=== PATIENT | female | born 1960 | race Caucasian/White ===

== ENCOUNTER 2018-09-23 09:36 | Outpatient (CLI) | payer BC, SELFPAY ==
[2018-09-23 10:53] LABS: Calculated LDL 169; Cholesterol 247 mg/dL (50-200); HDL Cholesterol 50 mg/dL (40-60); Triglyceride 142 mg/dL (30-150)
== END 2018-09-23 09:56 ==
PROVIDERS: PCP Emergency Medicine; Visit Provider Emergency Medicine
DX: Z13.220 Encounter for screening for lipoid disorders (principal)
CPT/HCPCS: 36415; 80061; 83721

== ENCOUNTER 2018-12-07 08:59 | Day surgery (SDC) | payer BC, SELFPAY ==
--- NOTE | 2018-12-07 06:57 | W.COLOREPORT ---
Date of service: 12/07/18 Time of Service: 10:01 Colonoscopy Report Date of procedure: 12/07/18 Pre-op diagnosis general: Colon Cancer Screening Post-op diagnosis procedure note: same (and mild diverticulosis) Procedure: Colonoscopy Surgeon: Aster Arriaza Anesthesia proc note operative: other (General/ ASA 2/ Michelle Bowman CRNA) Estimated blood loss (mL): 0 Pathology: none sent Complications: None Disposition: same day Indications: Mrs. Carmona is a pleasant 58 year old female seen in the office for a screening colonoscopy. Risks, benefits and complications have been reviewed. Complications include but are not limited to bleeding, pain, perforation, missed small lesion/polyp, sore throat, aspiration and adverse reaction to the medications. Questions were entertained and answered to their satisfaction and they wished to proceed. No guarantees were given or implied. Prep: Miralax/Dulcolax Procedure Start Time: 10:01 Procedure End Time: 10:20 Retraction Time: 11 minutes Findings: Mild diverticulosis Procedure Description: After informed consent was obtained the patient was taken to the procedure room and placed in a left decubitous position. Monitors were applied and a time out was done. The patients name, date of , procedure, allergies to medications and metal in their body was reviewed. The patient was then sedated. Once sedated and comfortable a rectal exam was done. External exam was normal. Internal exam revealed a normal sphincter tone and no palpable masses. The scope was then introduced and retro-flexed. No internal hemorrhoids, rectal polyps or masses were identified. The scope was then advanced to the cecum without difficulty. The TI and appendiceal orifice were identified. The prep was good. The scope was then slowly retracted over 11 minutes back into the rectum. There were no polyps. There was mild diverticulosis in the sigmoid colon. The scope was removed and the patient was woken up and taken back to Same day surgery in stable condition. The patient tolerated the procedure well and there were no immediate complications. Follow up: The patient should follow up in 10 years unless they develop changes in bowel habits or other new gastrointestinal complaints.
--- NOTE | 2018-12-07 06:58 | W.PM.DSUDISC ---
Discharge Plan Disposition Patient Disposition: HOME Condition: Good Discharge Details Reason For Visit: Colon Cancer Screening Attending Provider: Aster Arriaza Primary Care Provider: Keith Mcmullen Home Meds and New Rx's Prescriptions: Continued Restasis 0.05 % dropperette 1 drp OP Q12H RF: 0 cetirizine [Zyrtec] 10 MG tablet,chewable 10 mg PO DAILY PRNRF: 0 Artificial Tears([id number]) 30 ML drops 30 ml Ophthalmic QID Qty: 1 RF: 0 One-Per-Day [place]-3 1 EACH capsule,delayed release(DR/EC) 1 ea PO DAILY RF: 0 erythromycin 5 mg/gram (0.5 %) ointment 1 applic OP DAILY RF: 0 neomycin-polymyxin B-dexameth 3.5 mg/g-10,000 unit/g-0.1 % ointment 1 applic OP QHS RF: 0 Discharge Instructions Instructions: Colonoscopy (GEN), Diverticulosis (ED) Additional Instructions: Findings:diverticulosis of the sigmoid colon Follow up: 10 years Please call if you develop: fevers >101.5 Nausea or Vomiting Abdominal pain that is not transient DAY SURGERY UNIT POST COLONOSCOPY INSTRUCTIONS 1. Because there will be medication in your system for the next 24 hours, you may feel a little sleepy. Your coordination will be affected. Therefore: a. Do not drive or operate dangerous equipment for 24 hours. b. Do not drink alcohol beverages for 24 hours (not even beer). c. Plan to go home and rest for the day. 2. Generally there are no restrictions on your activity after a day or so has gone by, but you may feel a bit fatigued for a few days. 3 After you arrive home you may have a light meal and return to a normal diet as you can tolerate it without feeling sick to your stomach. 4. After surgery, you may feel pain or discomfort. This should be only transient, but if it persists please contact your doctor. 5. If there are any questions regarding the findings of your procedure, please feel free to contact your doctor. 6. If you are unable to contact your doctor with a problem, contact the hospital at [phone]. 7. Continue all your regular medications unless directed otherwise. I understand the above instructions and have no questions. Signature of Patient or Responsible Adult Escort Date/Time Name of Responsible Adult Escort Signature of Nurse Date/Time Activity:: Activity as Tolerated Diet:: High Fiber diet Discharge Orders Discharge Orders: Discharge Order (Routine); Ordered 12/07/18 Ordered By: Aster Arriaza DS: Diagnosis Discharge Diagnosis (1) S/P colonoscopy: Status: Acute (2) Diverticulosis:
[2018-12-07 09:18] VITALS: BP 110/78; PULSE 77; RESP 16; TEMP 36.3; O2SAT 100
[2018-12-07] MEDS: Lactated Ringers 1,000 ML 80 ML IV (09:40)
[2018-12-07 10:50] VITALS: BP 119/59; PULSE 55; RESP 16; TEMP 36.6; O2SAT 98
== END 2018-12-07 11:38 | disposition home or self-care (01) ==
LOC: SUR 08:59
PROVIDERS: PCP Emergency Medicine; Visit Provider Surgery
PROC: 0DJD8ZZ Inspection of Lower Intestinal Tract, Via Natural or Artificial Opening Endoscopic (ICD-10-PCS; CPT 45378; principal; 2018-12-07 10:15)
DX: Z12.11 Encounter for screening for malignant neoplasm of colon (principal); K57.30 Diverticulosis of large intestine without perforation or abscess without bleeding
CPT/HCPCS: 45378

== ENCOUNTER 2019-02-02 01:29 | Outpatient (CLI) | payer BC, SELFPAY ==
--- NOTE | 2019-02-02 17:30 | DI.MAMMO_ITS ---
EXAM: MG MAMMO SCREENING CLINICAL HISTORY: screening. TECHNIQUE: Mammograms were interpreted according to the usual protocol including computer analysis w [employer] CAD system, tomosynthesis and C-view imaging. FINDINGS: The breast tissue is heterogeneously radiodense which limits the sensitivity of the examination. The re is no dominant mass and there are no suspicious calcifications. Note is made of findings consiste nt with multiple breast cysts. There has been no significant interval change when compared with prio r images with note again made of a biopsy clip in the subareolar portion of the left breast. IMPRESSION: No evidence of malignancy, category 2. Breast density, category C. Annual screening mammography is re commended BI-RADS Cat 2 - Benign Findings. Breast Density - Category C - Heterogeneously dense.
== END 2019-02-02 01:49 ==
PROVIDERS: PCP Emergency Medicine; Visit Provider Nurse Practitioner Family
DX: Z12.31 Encounter for screening mammogram for malignant neoplasm of breast (principal)
CPT/HCPCS: 77063; 77067

== ENCOUNTER 2020-10-06 10:43 | Outpatient (REF) | payer OTHER, SELFPAY ==
[2020-10-06 13:36] LABS: Calculated LDL 151 mg/dL (<100); Cholesterol 226 mg/dL (<200); HDL Cholesterol 57 mg/dL (40-60); Triglyceride 93 mg/dL (<150)
== END 2020-10-06 10:44 | disposition home or self-care (01) ==
LOC: LBN 10:43
PROVIDERS: PCP Emergency Medicine; Visit Provider Emergency Medicine
DX: E78.5 Hyperlipidemia, unspecified (principal)
CPT/HCPCS: 80061

== ENCOUNTER 2021-03-29 16:00 | Outpatient (REF) | payer OTHER, SELFPAY ==
--- NOTE | 2021-03-29 15:45 | PAPFT_PTH ---
PATIENT: Ayah Iglesias LOC: [facility] U#:[id number] AGE/SX: 60/F ROOM: RE03/29/[address]: DERRICK June : 1960 BED: DIS: 03/29/2021 SPEC #: [id number] RECD: 03/29/21 18:24 STATUS: FITZ REQ #: [id number] BRENNA: 03/29/21 15:[address]: Lesly Montano DEPT: [facility] Cytology RECD BY: Saige Collazo ENTERED: 03/29/21 18:24 SP TYPE: PAPFT OTHR DR: Keith Mcmullen, Tissues: 1 - CX/ENDOCX FOR PAP SMEARS Procedures: PAP THIN PREP/UVM Screening HPV DNA PROBE Comments: [id number]
== END 2021-03-29 16:01 | disposition home or self-care (01) ==
LOC: LBN 16:00
PROVIDERS: PCP Emergency Medicine; Visit Provider Nurse Practitioner Family
DX: Z12.4 Encounter for screening for malignant neoplasm of cervix (principal); Z11.51 Encounter for screening for human papillomavirus (HPV)
CPT/HCPCS: 88142; 87624

== ENCOUNTER 2021-04-05 16:00 | Outpatient (REF) | payer OTHER, SELFPAY ==
[2021-04-07 00:37] LABS: COVID-19 RT-PCR UVMMC Result Negative (Negative)
== END 2021-04-05 16:01 | disposition home or self-care (01) ==
LOC: LBN 16:00
PROVIDERS: PCP Emergency Medicine; Visit Provider Nurse Practitioner Family
DX: Z20.822 Contact with and (suspected) exposure to COVID-19 (principal)
CPT/HCPCS: U0003

== ENCOUNTER 2021-04-25 01:03 | Outpatient (CLI) | payer OTHER, SELFPAY ==
--- NOTE | 2021-04-25 17:00 | DI.MAMMO_ITS ---
Exam(s) MAMMO SCREENING EXAM: MAMMO SCREENING CLINICAL HISTORY: screening. TECHNIQUE: Bilateral full field digital CC and MLO mammographic images were obtained with 3D tomosyn thesis and utilizing computer aided detection (CAD). COMPARISON: Prior mammograms dating back to 2011, the most recent being January 2019. FINDINGS: Fibroglandular tissue pattern is again noted dense, this somewhat decreasing the sensitivity of the m ammogram for finding hidden underlying lesions. There are no new obvious radiographic findings at the level of the biopsy marker clip anteriorly in t he left breast. Multiple nodular densities in the left breast are again noted, few of these exhibiting some periphera l calcification, similar to previous. However, 1 of the well-defined nodules in the left breast has slightly increased in size. Ultrasound recommended. This presently measures 11 by 8 millimeters. In the opposite-right breast 1 of the more laterally located nodules has decreased in size. IMPRESSION: Bilateral nodules. Most are stable in size with the exception of 1 which is located in the left quin st, approximately 2.5 cm in from the nipple on the CC view. Spot compression mammographic views and ultrasound recommended. BI-RADS Category 0 - Assessment Incomplete: Need additional imaging evaluation Breast Density - Category C - Heterogeneously dense Breast density Category C or D implies that the patient has dense breast tissue. Dense breast tissue can make it harder to find cancer on a mammogram. Dense breast tissue is also associated with an incr eased risk of breast cancer. This information about the result of the mammogram report was provided to the patient to raise their awareness. Use this report when you speak with the patient about their risks for breast cancer, which includes their family history. At that time, you may recommend additional screening tests (Ultrasoun d or MRI) as these tests may add significant information. A negative radiographic report should not delay biopsy if a dominant or clinically suspicious mass is present. Up to ten percent of cancers are not identified on mammography. A negative report may reinforce clinical impression. Adenosis and dense breasts may obscure an underlying neoplasm. False positive reports average 6 to 10%. Patient will receive a letter notifying them of these results.
== END 2021-04-25 01:23 ==
PROVIDERS: PCP Emergency Medicine; Visit Provider Nurse Practitioner Family
DX: Z12.31 Encounter for screening mammogram for malignant neoplasm of breast (principal); R92.8 Other abnormal and inconclusive findings on diagnostic imaging of breast
CPT/HCPCS: 77063; 77067

== ENCOUNTER 2021-05-04 00:21 | Outpatient (CLI) | payer OTHER, SELFPAY ==
--- NOTE | 2021-05-04 14:00 | DI.MAMMO_ITS ---
Exam(s) MG MAMMO SCREEN CALL BACK UNI US BREAST LT LIMITED EXAM: MG MAMMO SCREEN CALL BACK UNI CLINICAL HISTORY: WELL-DEFINED NODULE INCREASED IN SIZE, 2.5 CM FROM NIPPLE, LT BREAST. TECHNIQUE: Craniocaudal and mediolateral oblique spot compression digital Mammography views of the left breast with Computer Aided Diagnosis followed by Tomosynthesis and left breast ultrasound. COMPARISON: MG Screening Bilat Mammo from 03/01/2015 US RIGHT BREAST ULTRASOUND {[id number]} from 03/15/2015 US LEFT BREAST ULTRASOUND {[id number]} from 03/15/2015 MG MG MAMMO SCREENING from 02/02/2019 MG MG MAMMO SCREENING from 04/25/2021 US US BREAST LT LIMITED from 05/04/2021 FINDINGS: Mammography/Tomosynthesis: Multiple circumscribed nodules, some with peripheral calcification are again noted. No architectural distortion or spiculated mass. Biopsy marker clip again noted. Left breast US: Multiple circumscribed nodules with peripheral shadowing are noted consistent with the peripherally c alcified nodules on mammogram. In noncalcified nodules noted in the 12 o'clock position 2 cm from th e nipple which measures 12 x 6 by 10 millimeters. It has a benign appearance. Ductal dilation: None. IMPRESSION: No evidence of malignancy is noted. Multiple benign-appearing nodules. The findings were discussed with the patient on the date of the examination. BI-RADS Category 3 - Probably Benign Finding: Recommend follow-up imaging in 3 months Breast Density - Category C - Heterogeneously dense A mammogram that demonstrates density of C or D indicates the patient's breast tissue is dense. Dense breast tissue is very common and is not abnormal, but dense breast tissue can make it harder to find cancer on a mammogram. Also, dense breast tissue may increase their breast cancer risk. This informa tion about the result of the mammogram report was provided to the patient to raise their awareness. U se this report when you speak with the patient about their risks for breast cancer, which includes th eir family history. At that time, you may recommend for more screening tests (Ultrasound or MRI) as t hey might be useful based on their risk. A negative radiographic report should not delay biopsy if a dominant or clinically suspicious mass is present. Up to ten percent of cancers are not identified on mammography. A negative report may reinforce clinical impression. Adenosis and dense breasts may obscure an underlying neoplasm. False positive reports average 6 to 10%. Patient will receive a letter notifying them of these results.
== END 2021-05-04 00:41 ==
PROVIDERS: PCP Emergency Medicine; Visit Provider Nurse Practitioner Family
DX: Z12.31 Encounter for screening mammogram for malignant neoplasm of breast (principal); R92.8 Other abnormal and inconclusive findings on diagnostic imaging of breast; N60.82 Other benign mammary dysplasias of left breast
CPT/HCPCS: 76642; 77063; 77067

== ENCOUNTER 2021-08-08 01:55 | Outpatient (CLI) | payer OTHER, SELFPAY ==
--- NOTE | 2021-08-08 07:15 | DI.US_ITS ---
Exam(s) MG MAMMO DIAGNOSTIC UNI US BREAST LT LIMITED EXAM: MG MAMMO DIAGNOSTIC UNI CLINICAL HISTORY: Follow-up nodules. COMPARISON: MG Screening Bilat Mammo from 03/01/2015 MG Screening Bilat Mammo from 09/15/2017 MG MG MAMMO SCREENING from 02/02/2019 MG MG MAMMO SCREENING from 04/25/2021 MG MG MAMMO SCREEN CALL BACK UNI from 05/04/2021 US US BREAST LT LIMITED from 05/04/2021 US US BREAST LT LIMITED from 08/08/2021 [id number] TECHNIQUE: Craniocaudal and mediolateral oblique spot compression mammography views of the left quin st with Tomosynthesis and left breast ultrasound. FINDINGS: Mammography/Tomosynthesis: Masses/Architectural Distortion: Interval decrease in size of 1 of the previously noted nodules. Per ipherally calcified nodules are again noted in the superior breast. Biopsy marker clip is again note d. Microcalcifications: No suspicious pleomorphic-type are seen. Skin Thickening/Nipple Retraction: None. Left breast US: Ductal dilation: None. Smoothly marginated hypoechoic nodules in the superior breast. No suspicious masses. IMPRESSION: 1. No evidence of malignancy is noted. 2. Unless there is more urgent need, follow-up screening mammography is recommended, as per [place] [employer] guidelines. BI-RADS Category 2 - Benign Findings Breast Density - Category C - Heterogeneously dense Breast density category C or D implies that the patient has dense breast tissue. Dense breast tissue is very common and is not abnormal but dense breast tissue can make it harder to find cancer on a ma mmogram. Also, dense breast tissue may increase their breast cancer risk. This information about the result of the mammogram report was provided to the patient to raise their awareness. Use this report when you speak with the patient about their risks for breast cancer, which includes their family hist ory. At that time, you may recommend for more screening tests (Ultrasound or MRI) as they might be us eful based on their risk. A negative radiographic report should not delay biopsy if a dominant or clinically suspicious mass is present. Up to ten percent of cancers are not identified on mammography. A negative report may reinforce clinical impression. Adenosis and dense breasts may obscure an underlying neoplasm. False positive reports average 6 to 10%. Patient will receive a letter notifying them of these results.
== END 2021-08-08 02:15 ==
PROVIDERS: Visit Provider Nurse Practitioner Family
DX: R92.8 Other abnormal and inconclusive findings on diagnostic imaging of breast (principal); N60.82 Other benign mammary dysplasias of left breast
CPT/HCPCS: 76642; 77061; 77065; G0279

== ENCOUNTER 2022-05-30 00:39 | Outpatient (CLI) | payer BC, SELFPAY ==
--- NOTE | 2022-05-30 06:45 | DI.MAMMO_ITS ---
Exam(s) MAMMO SCREENING EXAM: MAMMO SCREENING CLINICAL HISTORY: screening,z12.39. TECHNIQUE: Bilateral full field digital CC and MLO mammographic images were obtained with 3D tomosyn thesis and utilizing computer aided detection (CAD). COMPARISON: Prior mammograms were reviewed. Ultrasound of July 2021 also reviewed. FINDINGS: Fibroglandular tissue pattern is again noted be moderately dense. There are no new findings in the immediate vicinity of the biopsy marker clip in the left breast. No new right breast findings. In the left breast there are multiple partially calcified and noncalcified nodules again noted. The nodule which had previously increased in size in the left breast (as seen on mammogram 04/25/2021) cabezas s now decreased in size, further evidence that it is benign. There are no new spiculated masses nor malignant-appearing microcalcification groups in either breast . There is no significant architectural distortion nor skin thickening-retraction. IMPRESSION: Stable benign-appearing findings. No radiographic evidence of malignancy. BI-RADS Category 2 - Benign Findings Breast Density - Category C - Heterogeneously dense Breast density Category C or D implies that the patient has dense breast tissue. Dense breast tissue can make it harder to find cancer on a mammogram. Dense breast tissue is also associated with an incr eased risk of breast cancer. This information about the result of the mammogram report was provided to the patient to raise their awareness. Use this report when you speak with the patient about their risks for breast cancer, which includes their family history. At that time, you may recommend additional screening tests (Ultrasoun d or MRI) as these tests may add significant information. A negative radiographic report should not delay biopsy if a dominant or clinically suspicious mass is present. Up to ten percent of cancers are not identified on mammography. A negative report may reinforce clinical impression. Adenosis and dense breasts may obscure an underlying neoplasm. False positive reports average 6 to 10%. Patient will receive a letter notifying them of these results.
== END 2022-05-30 00:59 ==
LOC: DI 00:39
PROVIDERS: PCP Nurse Practitioner Family; Visit Provider Nurse Practitioner Women's Health
DX: Z12.31 Encounter for screening mammogram for malignant neoplasm of breast (principal); R92.8 Other abnormal and inconclusive findings on diagnostic imaging of breast
CPT/HCPCS: 77063; 77067

== ENCOUNTER 2022-07-11 02:45 | Outpatient (CLI) | payer BC, SELFPAY ==
[2022-07-11 12:29] LABS: Anion Gap 7.9 mmol/L (3-11); BUN 18 mg/dL (7-18); CO2 29.1 mmol/L (21.0-32.0); CREATININE 0.7 mg/dL (0.55-1.02); Calcium 8.8 mg/dL (8.5-10.1); Chloride 105 mmol/L (98-107); Estimated GFR 99.57 (mL/min/1.73m2); Glucose 97 mg/dL (74-106); Potassium 4.2 mmol/L (3.5-5.1); Sodium 142 mmol/L (136-145)
[2022-07-14 15:17] LABS: HIV-1/2 Ag & Ab Screen Negative (Negative)
[2022-07-15 12:21] LABS: Hepatitis C Ab w Rflx HCV PCR Negative (Negative)
== END 2022-07-11 02:46 | disposition home or self-care (01) ==
LOC: LOS 02:45
PROVIDERS: PCP Nurse Practitioner Family; Visit Provider Nurse Practitioner Family
DX: Z13.1 Encounter for screening for diabetes mellitus (principal); Z11.4 Encounter for screening for human immunodeficiency virus [HIV]; Z11.59 Encounter for screening for other viral diseases
CPT/HCPCS: 36415; 80048; 86803; 87389

== ENCOUNTER 2023-07-08 12:56 | Outpatient (CLI) | payer BC, SELFPAY ==
--- NOTE | 2023-07-08 12:45 | RT.EKG_ITS ---
APPROVED REPORT Exam: Resting ECG Reason for Exam: tachycardia Patient Location: O HR:77 bpm ECG Measurements Heart Rate 77 AXIS MT 137 P 77 QRSd 85 QRS 74 QT 371 T 31 QTc 420 Conclusion Sinus rhythm...normal P axis, V-rate 50- 99 Probable left atrial enlargement...P >50mS, <-0.10mV V1 Borderline T abnormalities, anterior leads...T flat or neg, V2-V4
== END 2023-07-08 12:57 | disposition home or self-care (01) ==
LOC: DI.CM 12:57
PROVIDERS: PCP Nurse Practitioner Family; Visit Provider Nurse Practitioner Family
DX: R00.0 Tachycardia, unspecified (principal)
CPT/HCPCS: 93010

== ENCOUNTER 2023-07-08 21:10 | Outpatient (REF) | payer BC, SELFPAY ==
[2023-07-08 21:22] LABS: HCT 42.1 % (36.0-46.0); HGB 13.5 g/dL (11.2-15.7); MCH 29.2 pg (27.0-33.0); MCHC 32.1 % (32.0-36.0); MCV 91 fL (80-95); MPV 10.2 fL (8.0-11.0); Platelet Count 279 10^3/uL (130-400); RBC 4.62 10^6/uL (3.93-5.22); RDW-SD 40.3 fL; WBC 6.93 10^3/uL (4.4-10.8)
[2023-07-08 21:44] LABS: Anion Gap 8.7 mmol/L (3-11); BUN 16 mg/dL (7-18); CO2 27.3 mmol/L (21.0-32.0); CREATININE 0.7 mg/dL (0.55-1.02); Calcium 8.8 mg/dL (8.5-10.1); Chloride 104 mmol/L (98-107); Estimated GFR 98.95 (mL/min/1.73m2); Glucose 154 mg/dL (74-106); Potassium 4.3 mmol/L (3.5-5.1); Sodium 140 mmol/L (136-145)
[2023-07-09 11:14] LABS: Lab Add On Test DONE
[2023-07-09 12:03] LABS: Hemoglobin A1C 5.8 % (<5.7)
== END 2023-07-08 21:11 | disposition home or self-care (01) ==
LOC: LBN 21:10
PROVIDERS: PCP Nurse Practitioner Family; Visit Provider Nurse Practitioner Family
DX: R00.2 Palpitations (principal); R73.9 Hyperglycemia, unspecified
CPT/HCPCS: 80048; 85027; 83036; 84443

== ENCOUNTER 2023-07-17 08:58 | Outpatient (RCR) | payer BC, SELFPAY ==
--- NOTE | 2023-07-17 09:15 | HOLTER_ITS ---
APPROVED REPORT Conclusion This is a 48-hour Holter monitor Rhythm throughout was sinus with an average heart rate of 78. Minimum was 56, maximum 128 A total of 4 isolated PVCs were seen There were 7 premature atrial contractions There was no atrial fibrillation, no high-grade AV block, no pauses greater than 3 seconds Reported symptoms could not be reliably correlated to any dysrhythmia
== END 2023-08-12 23:59 | disposition home or self-care (01) ==
LOC: CARDOPNVT 08:58
PROVIDERS: PCP Nurse Practitioner Family; Visit Provider Internal Medicine Cardiovascular Disease
DX: R00.2 Palpitations (principal)
CPT/HCPCS: 93225; 93226

== ENCOUNTER → 2023-07-18 01:13 | Outpatient (CLI) | payer BC, SELFPAY ==
--- NOTE | 2023-07-18 14:30 | DI.US_ITS ---
APPROVED REPORT EXAM: Comprehensive 2D, Doppler, and color-flow Echocardiogram Patient Location: Out-Patient Deputy Director: Trenton Ozuna RDCS (AE) Indications: Racing heart, palpitations Conclusion Normal left ventricular wall thickness and chamber size.EF is 65%. Wall motion is normal Normal right ventricular size and function Both atria are normal in size There is no structural or hemodynamically significant valvular disease Estimated right ventricular systolic pressure is 18 mmHg Wall motion Left Ventricle The left ventricle is normal size. Left ventricular systolic function is normal. The left ventricular ejection fraction is within the normal range. There is normal left ventricular wall thickness. There is normal LV segmental wall motion. There is no ventricular septal defect visualized. LVEF is 65%. Right Ventricle The right ventricle is normal size. The right ventricular systolic function is normal. Atria The left atrium size is normal. The right atrium size is normal. Aortic Valve The aortic valve is normal in structure. Aortic valve is trileaflet. There is no aortic valvular sten osis. No aortic regurgitation is present. Mitral Valve The mitral valve is normal in structure. No evidence of mitral valve stenosis. Trace mitral regurgita tion. Tricuspid Valve The tricuspid valve is normal in structure. There is no tricuspid valve stenosis. Trace tricuspid reg urgitation. The RVSP is 18.1 mmHg. Pulmonic Valve The pulmonary valve is normal in structure. There is no pulmonic valvular stenosis. Trace pulmonic re gurgitation. Great Vessels The aortic root is normal in size. The ascending aorta is normal in size. Aortic arch is normal in ca liber. IVC is normal in size and collapses >50% with inspiration. Pericardium There is no pericardial effusion. 2D Dimensions IVSD d PLAX 0.58 cm F: 0.6-1.0 Ao Root d 2.65 cm F: 2.7 - 3.3 LVPW d PLAX 0.64 cm F: 0.6 - 1.0 Ao Asc Diam d 2.64 cm F: 2.3 - 3.1 LVID d PLAX 4.43 cm F: 3.8 - 5.2 LVDs 2.75 cm F: 2.2 - 3.5 LV EF Teichholz 68.3 % FS 37.93 % LV EDV (Teich) 89.3 mL LV ESV (Teich) 28.3 mL Stroke Vol Index (Teich) 38.85 M-Mode TAPSE 2.62 cm (M/F) >1.7 Auto EF LV EDV A4C 62.3 mL LV EDV A2C 71.0 mL LV EDV BP 66.0 mL LV ESV A4C 22.0 mL LV ESV A2C 23.9 mL LV ESV BP 22.4 mL LVEF(%) A4C 64.7 % LVEF(%) A2C 66.3 % LVEF(%) BP 66.1 % LV SV A4C 40.3 ml LV SV A2C 47.1 ml LV SV BP 43.6 ml LV CO A4C 2.7 L/min LV CO A2C 4.0 L/min LV CO BP 3.3 L/min HR A4C 66.18 BPM HR A2C 85.31 BPM LV EDV Index (BP) LA Volume LA Length A4C 4.3 cm LA Length A2C 3.6 cm LA Area A4C s 7.11 cm2 LA Area A2C s 10.82 cm2 LA Vol A4C A-L 10.00 mL LA Vol A2C A-L 27.34 mL LA Vol Biplane A-L 18.0 mL LA Vol/BSA A4C A-L LA Vol/BSA A2C A-L LA Vol/BSA BP A-L 11.4 mL/m2 LA Vol A4C MOD 8.7 mL LA Vol A2C MOD 26.0 mL LA Vol BP MOD 16.3 mL RA Volume RA Area A4C 7.2 cm2 RA ESV A4C (A-L) 16.2mL RA Vol/BSA A4C A-L RA Length A4C 2.7 cm RA ESV A4C (MOD) 15.4mL LV Diastology MV E' medial 0.101 (>0.07 m/s) MV E Vmax 1.03 (0.4-1.3 m/s) MV E/E' MED 10.23 (<14) MV A Vmax 0.80 (0.4-1.3 m/s) MV E' lateral 0.087 (>0.1 m/s) E/A Ratio 1.3 MV E/E' LAT 11.84 (<14) MV E' Average 0.094 m/s MV E/E'(average) 10.98 Aortic Valve AoV Vmax 1.43 m/s LVOT Vmax 1.00 m/s AoV Peak Grad 8.2 mmHg LVOT Peak Grad 4.0 mmHg AoV Area (Vmax) 1.59 cm2 LVOT VTI 0.206 m AoV VTI 0.322 m LVOT Mean Grad 1.9 mmHg AoV Mean Shant. 0.99 m/s LVOT SV 47.15 mL AoV Mean Grad 4.4 mmHg LVOT Diam s 1.70 cm AoV Area (VTI) 1.47 cm2 Velocity Ratio 0.70 Mitral Valve MV DT 175 (160-240 msec) Pulmonary Valve PV Vmax 1.00 (0.5-1.5 m/s) RVOT Vmax 0.78 m/s PV Peak Grad 4.0 mmHg RVOT Peak Gr. 2.5 mmHg PV Mean Shant 0.68 m/s RVOT VTI 0.116 m PV Mean Grad 2.1 mmHg RVOT Mean Gr. 1.3 mmHg Tricuspid Valve RA Pressure 3.00 mmHg TR Vmax 1.94 m/s TR Peak Grad 15.0 mmHg RVSP (TR) 18.1 mmHg
== END ==
PROVIDERS: PCP Nurse Practitioner Family; Visit Provider Nurse Practitioner Family
DX: R00.2 Palpitations (principal)
CPT/HCPCS: 93306

== ENCOUNTER → 2023-08-12 02:24 | Outpatient (CLI) | payer BC, SELFPAY ==
--- NOTE | 2023-08-12 07:59 | DI.MAMMO_ITS ---
Exam(s) MAMMO SCREENING EXAM: MAMMO SCREENING CLINICAL HISTORY: screening,z12.39 TECHNIQUE: Mammograms were interpreted according to the usual protocol including computer analysis w [employer] CAD system, tomosynthesis and C-view imaging. COMPARISON: 2014 - 2022 FINDINGS: The breasts are composed of heterogeneously dense fibroglandular densities, Breast Density category C . No suspicious masses or suspicious microcalcifications are seen. Biopsy marker clip in left breast. Stable oil cysts in right breast. No skin thickening or abnormal axillary lymph nodes are seen. There has been no significant change from prior exams. IMPRESSION: BI-RADS Category 2 - Benign Findings Yearly screening mammography is recommended. Breast Density Category C, heterogeneously Dense. The mammogram demonstrates the patient's breast tissue is dense. Dense breast tissue is very common a nd is not abnormal but dense breast tissue can make it harder to find cancer on a mammogram. Also, de nse breast tissue may increase breast cancer risk. This information about the result of the mammogram report was provided to the patient to raise their awareness. Use this report when you speak with the patient about their risks for breast cancer, which includes their family history. At that time, you may recommend additional screening tests (Ultrasound or MRI) as they might be useful based on their r isk. A negative radiographic report should not delay biopsy if a dominant or clinically suspicious mass is present. Up to ten percent of cancers are not identified on mammography. A negative report may reinforce clinical impression. Adenosis and dense breasts may obscure an underlying neoplasm. False positive reports average 6 to 10%.
== END ==
PROVIDERS: PCP Nurse Practitioner Family; Visit Provider Nurse Practitioner Family
DX: Z12.31 Encounter for screening mammogram for malignant neoplasm of breast (principal)
CPT/HCPCS: 77063; 77067

== ENCOUNTER 2023-09-30 09:53 | Outpatient (REF) | payer BC, SELFPAY ==
[2023-09-30 12:23] LABS: Bilirubin Negative (Negative); Blood Trace-intact (Negative); Clarity Clear (Clear); Glucose Negative (Negative); Ketones Negative (Negative); Leukocyte Esterase Small (Negative); Nitrite Negative (Negative); Specific Gravity 1.015 (1.005-1.025); Urobilinogen 0.2 mg/dL (Up to 0.2)
[2023-09-30 13:01] LABS: Bacteria Rare HPF (Negative); Casts Negative LPF (Negative); Crystals Negative HPF (Negative); Epithelial Cells Moderate HPF (Negative); Mucus Negative (Negative); RBC 0-2 HPF (0-2)
[2023-09-30 13:05] LABS: C & S Indicated? No; WBC 0-2 HPF (0-5)
== END 2023-09-30 09:54 | disposition home or self-care (01) ==
LOC: LBN 09:53
PROVIDERS: PCP Nurse Practitioner Family; Visit Provider Nurse Practitioner Family
DX: R30.0 Dysuria (principal); R35.0 Frequency of micturition; N39.0 Urinary tract infection, site not specified
CPT/HCPCS: 81003; 81015; 87086

== ENCOUNTER 2023-10-02 13:20 | Outpatient (CLI) | payer BC, SELFPAY ==
[2023-10-02 12:21] LABS: Abs Immature Grans 0.02 10^3/uL (0.0-0.06); Absolute Basophil Count 0.07 10^3/uL (0.0-0.2); Absolute Eosinophil Count 0.18 10^3/uL (0.0-0.7); Absolute Lymphocyte Count 1.76 10^3/uL (1.2-3.4); Absolute Monocyte Count 0.54 10^3/uL (0.1-0.8); Absolute Neutrophil Count 6.53 10^3/uL (1.2-6.7); Basophils % 0.8 %; HCT 41.8 % (36.0-46.0); HGB 13.6 g/dL (11.2-15.7); Immature Grans % 0.2 %; Lymphocytes % 19.3 %; MCH 29.8 pg (27.0-33.0); MCHC 32.5 % (32.0-36.0); MCV 92 fL (80-95); MPV 10.2 fL (8.0-11.0); Monocytes % 5.9 %; Neutrophils % 71.8 %; Platelet Count 283 10^3/uL (130-400); RBC 4.56 10^6/uL (3.93-5.22); RDW 12.2 % (11.7-14.6); RDW-SD 40.9 fL
[2023-10-02 12:33] LABS: ALT 18 U/L (14-59); AST 12 U/L (15-37); Alkaline Phosphatase 74 U/L (46-116); BUN 18 mg/dL (7-18); CREATININE 0.7 mg/dL (0.55-1.02); Calcium 8.7 mg/dL (8.5-10.1); Chloride 105 mmol/L (98-107); Estimated GFR 98.34 (mL/min/1.73m2); Glucose 101 mg/dL (74-106); Potassium 4.3 mmol/L (3.5-5.1); Sodium 141 mmol/L (136-145); Total Protein 7.3 g/dL (6.4-8.2)
== END 2023-10-02 13:21 | disposition home or self-care (01) ==
LOC: LOS 13:20
PROVIDERS: PCP Nurse Practitioner Family; Visit Provider Nurse Practitioner Family
DX: R31.9 Hematuria, unspecified (principal); R10.2 Pelvic and perineal pain
CPT/HCPCS: 36415; 80053; 85025

== ENCOUNTER 2023-10-22 09:27 | Outpatient (CLI) | payer BC, SELFPAY ==
[2023-10-23 10:14] LABS: Lyme Ab w Rflx to Lyme Confirm Negative (Negative)
[2023-10-24 23:16] LABS: Anaplasma phagocytophilum Negative (Negative); B. miyamotoi PCR Negative (Negative); Babesia divergens/MO-1 Negative (Negative); Babesia duncani Negative (Negative); Babesia microti Negative (Negative); Ehrlichia chaffeensis Negative (Negative); Ehrlichia ewingii/canis Negative (Negative); Ehrlichia muris eauclairensis Negative (Negative)
== END 2023-10-22 09:28 | disposition home or self-care (01) ==
LOC: LOS 09:27
PROVIDERS: PCP Nurse Practitioner Family; Referring Provider Nurse Practitioner Family; Visit Provider Nurse Practitioner Family
DX: A69.20 Lyme disease, unspecified (principal)
CPT/HCPCS: 36415; 87798; 86618

== ENCOUNTER 2024-09-08 00:12 | Outpatient (CLI) | payer BC, SELFPAY ==
--- NOTE | 2024-09-08 15:41 | DI.MAMMO_ITS ---
Exam(s) MAMMO SCREENING EXAM: MAMMO SCREENING CLINICAL HISTORY: screening,Z12.39 TECHNIQUE: Mammograms were interpreted according to the usual protocol including computer analysis w [employer] CAD system, tomosynthesis and C-view imaging. COMPARISON: 2014 through 2023 FINDINGS: The breasts are composed of heterogeneously dense fibroglandular densities, Breast Density category C . No suspicious masses or suspicious microcalcifications are seen. Biopsy marker clip an oil cysts not ed in the left breast. No skin thickening or abnormal axillary lymph nodes are seen. There has been no significant change from prior exams. IMPRESSION: BI-RADS Category 2 - Negative Mammogram with benign findings. Yearly screening mammography is recomm ended. Breast Density Category C, heterogeneously Dense. Breast density Category C or D implies that the patient has dense breast tissue. Dense breast tissue can make it harder to find cancer on a mammogram. Dense breast tissue is also associated with an incr eased risk of breast cancer. This information about the result of the mammogram report was provided to the patient to raise their awareness. Use this report when you speak with the patient about their risks for breast cancer, which includes their family history. At that time, you may recommend additional screening tests (Ultrasoun d or MRI) as these tests may add significant information. A negative radiographic report should not delay biopsy if a dominant or clinically suspicious mass is present. Up to ten percent of cancers are not identified on mammography. A negative report may reinforce clinical impression. Adenosis and dense breasts may obscure an underlying neoplasm. False positive reports average 6 to 10%.
== END 2024-09-08 00:32 ==
LOC: DI 00:13
PROVIDERS: PCP Nurse Practitioner Family; Visit Provider Nurse Practitioner Family
DX: Z12.31 Encounter for screening mammogram for malignant neoplasm of breast (principal); R92.333 Mammographic heterogeneous density, bilateral breasts
CPT/HCPCS: 77063; 77067